=== PATIENT | female | born 1985 | race Native Hawaiian/Other Pacific Islander ===

== ENCOUNTER 2017-08-05 14:46 | Outpatient (CLI) | payer BC ==
[2017-08-05 15:12] LABS: PLATELET COUNT 220 K/uL (152-353)
[2017-08-05 16:54] LABS: POTASSIUM 3.7 mmol/L (3.6-5.2); SODIUM 136 mmol/L (136-145)
== END 2017-08-05 15:50 | disposition home or self-care (01) ==
LOC: LABW 14:46
PROVIDERS: Family Medicine
DX: E03.8 Other specified hypothyroidism (principal)
CPT/HCPCS: 36415; 80053; 84439; 84443; 84481; 85027

== ENCOUNTER 2019-03-31 07:16 | Outpatient (CLI) | payer OTHER | END 2019-03-31 23:00 | disposition home or self-care (01) | LOC: LABW 07:16 | DX: E03.9 Hypothyroidism, unspecified (principal) | CPT/HCPCS: 36415; 84439; 84443; 84480 ==

== ENCOUNTER 2019-07-17 11:23 | Outpatient (CLI) | payer OTHER ==
[2019-07-17 12:35] LABS: PLATELET COUNT 227 K/uL (152-353)
[2019-07-17 12:53] LABS: POTASSIUM 4.2 mmol/L (3.6-5.2)
== END 2019-07-17 22:25 | disposition home or self-care (01) ==
LOC: LABW 11:23
PROVIDERS: Family Medicine
DX: R10.10 Upper abdominal pain, unspecified (principal); E03.8 Other specified hypothyroidism
CPT/HCPCS: 36415; 80053; 81000; 82150; 83690; 84436; 84443; 84481; 85027; 86318

== ENCOUNTER 2019-07-22 08:56 | Outpatient (CLI) | payer OTHER | END 2019-07-22 23:49 | disposition home or self-care (01) | LOC: US 08:56 | DX: R10.10 Upper abdominal pain, unspecified (principal) ==

== ENCOUNTER 2019-10-04 09:17 | Outpatient (CLI) | payer OTHER | END 2019-10-04 21:07 | disposition home or self-care (01) | LOC: LAB 09:17 | DX: E03.9 Hypothyroidism, unspecified (principal) | CPT/HCPCS: 36415; 84439; 84443; 84480 ==

== ENCOUNTER 2020-02-01 07:28 | Outpatient (CLI) | payer OTHER | END 2020-02-01 22:37 | disposition home or self-care (01) | LOC: LABW 07:28 | DX: E03.9 Hypothyroidism, unspecified (principal) | CPT/HCPCS: 36415; 84439; 84443; 84480 ==

== ENCOUNTER 2020-05-31 10:53 | Outpatient (CLI) | payer OTHER | END 2020-05-31 20:56 | disposition home or self-care (01) | LOC: LABW 10:53 | DX: E03.9 Hypothyroidism, unspecified (principal) | CPT/HCPCS: 36415; 84439; 84443; 84480 ==

== ENCOUNTER 2020-10-02 17:48 | Outpatient (CLI) | payer OTHER | END 2020-10-02 19:41 | disposition home or self-care (01) | LOC: LABW 17:48 | PROVIDERS: ATTEND Internal Medicine Endocrinology, Diabetes & Metabolism | DX: E03.9 Hypothyroidism, unspecified (principal) | CPT/HCPCS: 36415; 84439; 84443; 84480 ==

== ENCOUNTER 2021-03-19 08:19 | Outpatient (CLI) | payer OTHER | END 2021-03-19 18:58 | disposition home or self-care (01) | LOC: LABW 08:19 | PROVIDERS: ATTEND Internal Medicine Endocrinology, Diabetes & Metabolism | DX: E03.9 Hypothyroidism, unspecified (principal) | CPT/HCPCS: 36415; 84439; 84443; 84480 ==

== ENCOUNTER 2021-11-02 18:58 | Outpatient (CLI) | payer OTHER | END 2021-11-02 20:36 | disposition home or self-care (01) | LOC: LABW 18:58 | PROVIDERS: ATTEND Nurse Practitioner Obstetrics & Gynecology | DX: N94.6 Dysmenorrhea, unspecified (principal); N92.6 Irregular menstruation, unspecified | CPT/HCPCS: 36415; 82397; 82670; 83001; 83002; 83036; 84144; 84402; 84403 ==

== ENCOUNTER 2022-03-01 17:57 | Observation (INO) | payer OTHER ==
[~2022-03-01] VITALS: Ht 167.6 cm; Wt 89.7 kg
--- NOTE | 2022-03-01 18:15 | NUR ---
PT TO ROOM 1116 DX ABDONMINAL PAIN,N/V DEHYDRATION.ALERT ORIENTED TO ROOM.CALL LIGHT WITHIN REACH.CC
[2022-03-01 18:59] VITALS: BP 117/78; TEMP 99.7; Ht 167.6 cm; Wt 89.7 kg
[2022-03-01 19:09] LABS: PLATELET COUNT 172 K/uL (152-353)
[2022-03-01 19:21] LABS: POTASSIUM 3.6 mmol/L (3.6-5.2)
[2022-03-01 19:53] VITALS: BP 105/72; TEMP 100.7
[2022-03-01 19:57] VITALS: BP 105/72; TEMP 100.7
[2022-03-01] MEDS ORDERED: LEVO0.117 PO (20:44)
[2022-03-01] MEDS ORDERED: OMEPRAZOLE DR40 MG PO (20:45)
[2022-03-01] MEDS ORDERED: METOPROLOL25 M1 PO (20:46)
[2022-03-01] MEDS ORDERED: ALLERGY RELF10 MG PO (20:46)
[2022-03-02 00:10] VITALS: BP 97/52; TEMP 99.4
[2022-03-02 04:08] VITALS: BP 93/52; TEMP 99.3
[2022-03-02 05:04] LABS: PLATELET COUNT 157 K/uL (152-353)
--- NOTE | 2022-03-02 05:15 | NUR ---
LATE ENTRY: 03/01/22 1900 PATIENT LABS SENT TO DR SORIANO. ORDERED PATIENT BE GIVEN 2G OF MAGNESIUM IV AND 40 MEQ OF POTASSIUM IV. 20 IV ACHIEVED BY ER STAFF X 1 ATTEMPT. 2100: PATEINT REPORTED PAIN AND NAUSEA, SHE WAS GIVEN PRN PAIN MEDICATION AND ZOFRAN.
--- NOTE | 2022-03-02 05:43 | NUR ---
PATIENT WAS ASSESED AND SHE IS ALERT AND ORIENTED. FAMILY AT BEDSIDE. PATIENT REPORTS PAIN TO HER LEFT ABDOMINAL AREA AND [place], IT WAS TREATED BY PRN MEDICATION AND NOW PATIENT REPORTS RELIEF OF BOTH. LUNGS ARE CLEAR. HEART SOUNDS IS S1 S2. H/0 OF PACEMAKER. ABDOMIAL SOUNDS ARE HYPOACTIVE EXCEPT FOR THE RIGHT UPPER QUADRANT. PATIENT REPORTS TENDERNES TO THE LEFT LOWER QUADRANT. IV ELECTROLYTES HAVE BEEN STARTED AND PATIENT IS TOLERATING WELL. TELE IN PLACE.
--- NOTE | 2022-03-02 05:51 | NUR ---
PATIENT IS RESTING QUIETLY. IV POTASSIUM INFUSING. PATIENT DENIES ANY PAIN OR NAUSEA
--- NOTE | 2022-03-02 05:52 | NUR ---
LATE ENTRY: PATIENT WENT TO CT AT 1999 AND RETUNED 20 MINS LATER VIA WHEEL CHAIR
[2022-03-02 05:56] LABS: POTASSIUM 3.6 mmol/L (3.6-5.2)
[2022-03-02 08:00] VITALS: BP 102/68; TEMP 98.6
[2022-03-02 12:00] VITALS: BP 98/63; TEMP 98.2
--- NOTE | 2022-03-02 15:37 | NUR ---
PT IV DC'D TIP INTACT AT THIS TIME. NO REDNESS OR SWELLING NOTED. PT TOLERATED WELL. DISCUSSED WITH PT DISCHARGE INSTRUCTIONS. INSTRUCTED SOMEONE WILL CALL HER ON SATURDAY WITH APPT DATE AND TIME TO FOLLOW UP WITH GENERAL SURGEON. PT HAS ALREADY REC'D APPT DATE AND TIME FOR [facility] SCAN FROM [facility] SCHEDULING. PT TO FOLLOW UP WITH DR. SORIANO ON SaturdayFebruary AT 1100, PT INSTRUCTED ON WHAT DIET TO FOLLOW AND FOODS TO EAT AND NOT EAT. PT VERBALIZES UNDERSTANDING. PT D/C'D VIA AMBULATORY AT THIS TIME.
--- NOTE | 2022-03-05 11:54 | NUR ---
CALLED AND SPOKE WITH PT ABOUT APPT DATE & TIME WITH GENERAL SURGEON DR. SORAIDA VILLARREAL FOR 03/15 @ 1:30
== END 2022-03-02 15:27 | disposition home or self-care (01) ==
LOC: MED/SURG 17:57
PROVIDERS: ADMIT Family Medicine; ATTEND Family Medicine
DX: R10.13 Epigastric pain (principal); R10.32 Left lower quadrant pain; R11.2 Nausea with vomiting, unspecified; E86.0 Dehydration; R10.9 Unspecified abdominal pain
CPT/HCPCS: 36415; 80053; 81000; 81025; 83735; 84100; 84436; 84443; 84480; 85027; 87040; 87088; 87635; 93005; 96360; 96361; 96367; 96375; 99220; G0378; G0379; J2175; J2405; J2543; J2550; J3475; J3490; Q9963; U0003

== ENCOUNTER 2022-03-08 19:09 | Outpatient (CLI) | payer OTHER ==
[~2022-03-08 19:09] MED LIST: ALLERGY RELF10 MG PO; LEVO0.117 PO; METOPROLOL25 M1 PO; OMEPRAZOLE DR40 MG PO
[2022-03-08 19:24] LABS: PLATELET COUNT 228 K/uL (152-353)
[2022-03-08 19:37] LABS: POTASSIUM 3.5 mmol/L (3.6-5.2)
== END 2022-03-08 21:25 | disposition home or self-care (01) ==
LOC: LABW 19:09
PROVIDERS: ATTEND Family Medicine
DX: R10.11 Right upper quadrant pain (principal)
CPT/HCPCS: 80053; 82150; 83690; 85027

== ENCOUNTER 2022-03-09 08:11 | Outpatient (CLI) | payer OTHER | END 2022-03-09 18:53 | disposition home or self-care (01) | LOC: NM 08:11 | PROVIDERS: ATTEND Family Medicine | DX: R10.9 Unspecified abdominal pain (principal); R11.2 Nausea with vomiting, unspecified; E86.0 Dehydration | CPT/HCPCS: A9537 ==

== ENCOUNTER 2022-04-10 11:37 | Outpatient (CLI) | payer OTHER | END 2022-04-10 19:15 | disposition home or self-care (01) | LOC: LABW 11:37 | PROVIDERS: ATTEND Internal Medicine Endocrinology, Diabetes & Metabolism | DX: E03.9 Hypothyroidism, unspecified (principal) | CPT/HCPCS: 36415; 84439; 84443; 84480 ==

== ENCOUNTER 2023-03-15 07:09 | Outpatient (CLI) | payer OTHER | END 2023-03-15 18:53 | disposition home or self-care (01) | LOC: LABW 07:09 | PROVIDERS: ATTEND Internal Medicine Endocrinology, Diabetes & Metabolism | DX: E03.8 Other specified hypothyroidism (principal) | CPT/HCPCS: 36415; 84439; 84443; 84480; 84481 ==

== ENCOUNTER 2023-04-09 10:03 | Outpatient (CLI) | payer OTHER | END 2023-04-09 19:08 | disposition home or self-care (01) | LOC: MAMMO 10:03 | PROVIDERS: ATTEND Obstetrics & Gynecology | DX: Z12.31 Encounter for screening mammogram for malignant neoplasm of breast (principal); N60.19 Diffuse cystic mastopathy of unspecified breast; N64.4 Mastodynia | CPT/HCPCS: G0279 ==